=== PATIENT | female | born 2000 | race Caucasian/White ===

== ENCOUNTER 2019-02-05 19:03 | Emergency (ER) | payer OTHER ==
[~2019-02-05] VITALS: Ht 172.7 cm; Wt 56.8 kg
[2019-02-05] MEDS ORDERED: DEPO150I IM (19:18)
[2019-02-05] MEDS ORDERED: LIDOCAINE 2% MDV 20 ML VIAL SC ONE (22:30)
[2019-02-05 23:44] VITALS: BP 108/59
--- NOTE | 2019-02-06 07:26 | REP ---
RIGHT FIRST DIGIT: Four views of the right first digit are performed. No fracture, dislocation, or intrinsic bone disease is visualized. There is soft tissue disruption at the tip of the digit. Electronically Signed by Josias Corado MD 02/07/2019 11:38 A
== END 2019-02-05 23:50 | disposition home or self-care (01) ==
LOC: M ED 19:03
DX: S61.111A Laceration without foreign body of right thumb with damage to nail, initial encounter (principal); W26.8XXA Contact with other sharp object(s), not elsewhere classified, initial encounter; Y92.018 Other place in single-family (private) house as the place of occurrence of the external cause; Z79.3 Long term (current) use of hormonal contraceptives